=== PATIENT | female | born 1990 | race Caucasian/White ===

== ENCOUNTER 2018-05-15 17:33 | Inpatient (IN) | payer OTHER ==
[2018-05-15 18:32] LABS: PLATELET COUNT 183 10^3/uL (150-400)
--- NOTE | 2018-05-15 20:12 | GHP ---
DATE OF ADMISSION: 05/15/2018 ADMITTING DIAGNOSIS: Intrauterine at 38-6/7 weeks gestation with elevated blood pressures, preeclampsia with mild features. HISTORY OF PRESENT ILLNESS: The patient is a 27-year-old, 1, para 0, with a last menstrual p eriod of 08/16/2017, and EDC of 05/23/2018, which was confirmed by a 10-week ultrasound. She present ed for her normal scheduled return OB visit today and was found to have elevated blood pressures of 1 50/100. She had mildly elevated blood pressures last week of 138/88. The patient denies headache, s cotomata, right upper quadrant pain, worsening edema, or any other symptoms. She presented to labor and delivery for evaluation and then was found to continue to have some elevated blood pressures in t he range of 131/83, 130/86, 144/88, 130/85, 136/94. The patient had labs drawn. Labs were significa nt for platelets of 183. AST 25, ALT 18, creatinine 0.8, uric acid 8.2, and protein to creatinine ra franchesca was 0.546. Because of documented elevated blood pressures of 150/100 and proteinuria, the patien t will be 39 weeks tomorrow, decision was made to proceed with induction of labor for preeclampsia wi th mild features. The patient's cervix was closed and soft in the office. I will place a Schaefr cath eter for cervical ripening and she will start Pitocin in the morning. PAST OBSTETRICAL HISTORY: The patient has no past obstetrical history. This is her 1st . PAST GYNECOLOGICAL HISTORY: She did have an abnormal Pap. History of HPV. Had colposcopy in 2014. Never been treated. Repeat Pap was negative. All her other Paps have been negative. She has no ot her significant gynecological problems. PAST MEDICAL HISTORY: She has left lower leg lymphedema from ankle fractures. She wears compression hose at work. PAST SURGICAL HISTORY: Only surgical history is dental implants and wisdom teeth. ALLERGIES: She has no known drug allergies. She is not on any current medications. SOCIAL HISTORY: She is . She lives with her . She is a nurse at [employer]. She denies tobacco, alcohol, and drug use. FAMILY HISTORY: Significant for maternal grandmother with heart disease. Maternal uncle with esopha geal cancer. Paternal grandfather with a stroke. Father with bipolar disorder. REVIEW OF SYSTEMS: Negative as per HPI as above. OBJECTIVE: The patient is afebrile. Blood pressures were as mentioned above. heart tones are 130s, reactive, moderate variability, category 1. She is ovidio irregularly. Cervix per exam early in the office was closed and soft. LABORATORIES: As above in HPI. ASSESSMENT/PLAN: A 27-year-old 1, para 0, at 38-6/7 weeks gestation, with preeclampsia with mild features by blood pressure and proteinuria criteria. The patient will have a Schafer catheter dian becky for cervical ripening and start Pitocin in the morning. /[id number]/MODL
[2018-05-15] MEDS ORDERED: LIDOCAINE 1% 300 MG/30 ML SDV ONE (20:13)
[2018-05-15] MEDS ORDERED: OLIVE OIL 118 ML BTL ONE (20:13)
[2018-05-15] MEDS ORDERED: AMMONIA AROMATIC 1 EACH AMP IH ONE (20:14)
[2018-05-15] MEDS ORDERED: MISOPROSTOL 200 MCG TAB ONE (20:14)
[2018-05-15] MEDS ORDERED: OXYTOCIN 10 UNIT/ML VIAL ONE (20:14)
[2018-05-15] MEDS ORDERED: LIDOCAINE 1% 300 MG/30 ML SDV SC PRN (20:39)
[2018-05-15] MEDS ORDERED: OXYTOCIN/RINGERS LACTATE 1,000 ML IV PRN (20:39)
[2018-05-15] MEDS ORDERED: TERBUTALINE SULFATE 1 MG/ML VIAL IV PRN (20:39)
[2018-05-15] MEDS ORDERED: EPSOM SALT 454 GM TP PRN (20:39)
[2018-05-15] MEDS ORDERED: MISOPROSTOL 200 MCG TAB PO PRN (20:39)
[2018-05-15] MEDS ORDERED: AMMONIA AROMATIC 1 EACH AMP IH PRN (20:39)
[2018-05-15] MEDS ORDERED: LR 1,000 ML IV PRN (20:39)
[2018-05-15] MEDS ORDERED: IBUPROFEN 600 MG TAB PO PRN (20:39)
[2018-05-15] MEDS ORDERED: OLIVE OIL 118 ML BTL MISC PRN (20:39)
[2018-05-15] MEDS ORDERED: ZOLPIDEM TARTRATE 5 MG TAB PO PRN (20:51)
[2018-05-15] MEDS ORDERED: LR 500 ML IV PRN (20:54)
[2018-05-15] MEDS ORDERED: OXYTOCIN/RINGERS LACTATE 500 ML IV SCH (21:00)
[2018-05-16 06:25] LABS: PLATELET COUNT 209 10^3/uL (150-400)
--- NOTE | 2018-05-16 08:28 | OBPROG ---
Labor Progress Note Assessment/Plan: Assessment: 27 G1 at 39w0d undergoing IOL for preeclampsia without severe features - by BPs and p/c = 0.546. Labs stable this morning, though appears to be hemoconcentrating. BPs stable this morning. Cephalic presentation confirmed by Dr. Coyle this morning. Alcazar bulb still in place. GBS neg. EFW 8lb Plan: Pitocin has been started. Continue close observation, will start monitoring I/O too. Aleyda Alvarez MD, [facility] 05/16/18 08:22 Subjective/Intrapartum Course: 05/16/18 08:33 Pt comfortable. Feeling a little cramping since pitocin started this morning by Dr. Coyle. No LOF, some bloody dc. Alcazar bulb still in place. No RIZZO, no vis changes, no RUQ or epigastric pain. Objective: 05/16/18 06:10 05/16/18 06:10 Patient ABO/Rh O POSITIVE 05/16/18 06:10 Uric Acid 8.1 mg/dL (2.5-6.8) H 05/16/18 06:10 Total Bilirubin 0.5 mg/dL (0.1-1.4) 05/15/18 18:10 Conjugated Bilirubin 0.2 mg/dL (0.0-0.5) 05/15/18 18:10 Unconjugated Bilirubin 0.3 mg/dL (0.0-1.1) 05/15/18 18:10 AST 35 IU/L (14-46) 05/16/18 06:10 ALT 19 IU/L (9-52) 05/16/18 06:10 Lactate Dehydrogenase 550 IU/L (313-618) 05/16/18 06:10 gen - pleasant, NAD CV - RRR chest - CTAB abd - gravid, soft, NT ext - LLE with compression sock and chronic edema = 1+ now, RLE with trace pitting edema. 2+ DTRs on BLE, no clonus, Gricelda's neg End of Alcazar catheter removed from vagina and gentle tension placed, with no release of alcazar bulb. - Contraction Pattern Assessment Current Contraction Pattern: Regular - FHR Assessment Jansen FHR (bpm): 125 FHR Pattern Variability: Moderate FHR Category: 1 - AP Antepartum Course: Office visit on 05/15/18 - elevated BPs. To L&D for induction. Asymptomatic, but p/c = 0.546 and BPs 150/100 initially. 05/16/18 08:38 Oxytocin Orders Assessment - Pre-Induction/Augmentation Assessment Indication: preeclampsia without severe features, 39w0d Presentation: Vertex Gestational Age: 38 week(s) and 6 day(s) Gestational Age Determined By: Ultrasound, Last Menstral Period Estimated Weight: 3456-3920 Membrane Status: Intact Current Contraction Pattern: Regular - Heart Rate Pattern Jansen FHR Category: 1 FHR Pattern Variability: Moderate FHR Accelerations: Present - Tirado's Score Dilation: 1-2cm Effacement: 0-30 Station: -3 Cervix: Firm Cervix Position: Posterior Tirado Score Total: 1 - Induction/Augmentation Consent Risks/Benefits of Procedure Reviewed/Pt Agrees to Proceed: Yes ICD10 Worksheet Patient Problems: Problems Problem Status Onset Pre-eclampsia during in third trimester, antepartum Acute - ICD10 Problem Qualifiers (1) Pre-eclampsia during in third trimester, antepartum
--- NOTE | 2018-05-16 11:47 | OBPROG ---
Labor Progress Note Assessment/Plan: Assessment: 27 G1 at 39w0d undergoing IOL for preeclampsia without severe features - by BPs and p/c = 0.546. Labs stable this morning, though appears to be hemoconcentrating. BPs stable this morning. Cephalic presentation confirmed by Dr. Coyle this morning. Alcazar bulb still in place. GBS neg. EFW 8lb Plan: Pitocin has been started. Continue close observation, will start monitoring I/O too. Aelyda Alvarez MD, [facility] 05/16/18 08:22 A/p: 27 G1 at 39wk - IOL for preeclampsia without severe features, not in active labor yet. Will continue pitocin. Aleyda Alvarez MD 05/16/18 11:45 Subjective/Intrapartum Course: 05/16/18 08:33 Pt comfortable. Feeling a little cramping since pitocin started this morning by Dr. Coyle. No LOF, some bloody dc. Alcazar bulb still in place. No RIZZO, no vis changes, no RUQ or epigastric pain. 05/16/18 11:46 Per RN - pt doing well, not uncomfortable, has been tugging alcazar with no removal. Objective: 05/16/18 06:10 05/16/18 06:10 Patient ABO/Rh O POSITIVE 05/16/18 06:10 Uric Acid 8.1 mg/dL (2.5-6.8) H 05/16/18 06:10 Total Bilirubin 0.5 mg/dL (0.1-1.4) 05/15/18 18:10 Conjugated Bilirubin 0.2 mg/dL (0.0-0.5) 05/15/18 18:10 Unconjugated Bilirubin 0.3 mg/dL (0.0-1.1) 05/15/18 18:10 AST 35 IU/L (14-46) 05/16/18 06:10 ALT 19 IU/L (9-52) 05/16/18 06:10 Lactate Dehydrogenase 550 IU/L (313-618) 05/16/18 06:10 - Contraction Pattern Assessment Current Contraction Pattern: Regular - FHR Assessment Jansen FHR (bpm): 120 FHR Pattern Variability: Moderate FHR Category: 1 - AP Antepartum Course: Office visit on 05/15/18 - elevated BPs. To L&D for induction. Asymptomatic, but p/c = 0.546 and BPs 150/100 initially. 05/16/18 08:38 - Physical Exam Estimated Weight: 2328-4360 Oxytocin Orders Assessment - Pre-Induction/Augmentation Assessment Presentation: Vertex Gestational Age: 38 week(s) and 6 day(s) Estimated Weight: 7542-2947 ICD10 Worksheet Patient Problems: Problems Problem Status Onset Pre-eclampsia during in third trimester, antepartum Acute - ICD10 Problem Qualifiers (1) Pre-eclampsia during in third trimester, antepartum
--- NOTE | 2018-05-16 14:49 | OBPROG ---
Labor Progress Note Assessment/Plan: Assessment: 27 G1 at 39w0d undergoing IOL for preeclampsia without severe features - by BPs and p/c = 0.546. Labs stable this morning, though appears to be hemoconcentrating. BPs stable this morning. Cephalic presentation confirmed by Dr. Coyle this morning. Alcazar bulb still in place. GBS neg. EFW 8lb Plan: Pitocin has been started. Continue close observation, will start monitoring I/O too. Aleyda Alvarez MD, [facility] 05/16/18 08:22 A/p: 27 G1 at 39wk - IOL for preeclampsia without severe features, not in active labor yet. Will continue pitocin. Aleyda Alvarez MD 05/16/18 11:45 A/P: 27 G1 at 39wk - IOL for preeclampsia without severe features, not in active labor yet, though Alcazar bulb just came out. Aleyda Alvarez MD 05/16/18 14:46 Subjective/Intrapartum Course: 05/16/18 08:33 Pt comfortable. Feeling a little cramping since pitocin started this morning by Dr. Coyle. No LOF, some bloody dc. Alcazar bulb still in place. No RIZZO, no vis changes, no RUQ or epigastric pain. 05/16/18 11:46 Per RN - pt doing well, not uncomfortable, has been tugging alcazar with no removal. 05/16/18 14:49 Doing well, minimal cramping, but Alcazar bulb just out. Objective: 05/16/18 06:10 05/16/18 06:10 Patient ABO/Rh O POSITIVE 05/16/18 06:10 Uric Acid 8.1 mg/dL (2.5-6.8) H 05/16/18 06:10 Total Bilirubin 0.5 mg/dL (0.1-1.4) 05/15/18 18:10 Conjugated Bilirubin 0.2 mg/dL (0.0-0.5) 05/15/18 18:10 Unconjugated Bilirubin 0.3 mg/dL (0.0-1.1) 05/15/18 18:10 AST 35 IU/L (14-46) 05/16/18 06:10 ALT 19 IU/L (9-52) 05/16/18 06:10 Lactate Dehydrogenase 550 IU/L (313-618) 05/16/18 06:10 - Contraction Pattern Assessment Current Contraction Pattern: Regular - FHR Assessment Jansen FHR (bpm): 125 FHR Pattern Variability: Moderate FHR Category: 1 - AP Antepartum Course: Office visit on 05/15/18 - elevated BPs. To L&D for induction. Asymptomatic, but p/c = 0.546 and BPs 150/100 initially. 05/16/18 08:38 - Physical Exam Estimated Weight: 0670-5495 Oxytocin Orders Assessment - Pre-Induction/Augmentation Assessment Presentation: Vertex Gestational Age: 38 week(s) and 6 day(s) Estimated Weight: 3641-4510 ICD10 Worksheet Patient Problems: Problems Problem Status Onset Pre-eclampsia during in third trimester, antepartum Acute - ICD10 Problem Qualifiers (1) Pre-eclampsia during in third trimester, antepartum
--- NOTE | 2018-05-16 16:27 | OBPROG ---
Labor Progress Note Assessment/Plan: Assessment: 27 G1 at 39w0d undergoing IOL for preeclampsia without severe features - by BPs and p/c = 0.546. Labs stable this morning, though appears to be hemoconcentrating. BPs stable this morning. Cephalic presentation confirmed by Dr. Coyle this morning. Alcazar bulb still in place. GBS neg. EFW 8lb Plan: Pitocin has been started. Continue close observation, will start monitoring I/O too. Aleyda Alvarez MD, [facility] 05/16/18 08:22 A/p: 27 G1 at 39wk - IOL for preeclampsia without severe features, not in active labor yet. Will continue pitocin. Aleyda Alvarez MD 05/16/18 11:45 A/P: 27 G1 at 39wk - IOL for preeclampsia without severe features, not in active labor yet, though Alcazar bulb just came out. Aleyda Alvarez MD 05/16/18 14:46 05/16/18 16:23 A/P: 27 G1 t 39 wk - IOL for preeclampsia, s/p SROM - clear, appears to be starting active labor. BPs stable. Will continue with pitocin. Aleyda Alvarez MD Subjective/Intrapartum Course: 05/16/18 08:33 Pt comfortable. Feeling a little cramping since pitocin started this morning by Dr. Coyle. No LOF, some bloody dc. Alcazar bulb still in place. No RIZZO, no vis changes, no RUQ or epigastric pain. 05/16/18 11:46 Per RN - pt doing well, not uncomfortable, has been tugging alcazar with no removal. 05/16/18 14:49 Doing well, minimal cramping, but Alcazar bulb just out. 05/16/18 16:27 Pt doing well. Just had gush of fluid. Becoming more uncomfortable with contractions. Objective: 05/16/18 06:10 05/16/18 06:10 Patient ABO/Rh O POSITIVE 05/16/18 06:10 Uric Acid 8.1 mg/dL (2.5-6.8) H 05/16/18 06:10 Total Bilirubin 0.5 mg/dL (0.1-1.4) 05/15/18 18:10 Conjugated Bilirubin 0.2 mg/dL (0.0-0.5) 05/15/18 18:10 Unconjugated Bilirubin 0.3 mg/dL (0.0-1.1) 05/15/18 18:10 AST 35 IU/L (14-46) 05/16/18 06:10 ALT 19 IU/L (9-52) 05/16/18 06:10 Lactate Dehydrogenase 550 IU/L (313-618) 05/16/18 06:10 132/84 82 afeb gen - pleasant, NAD SVE /-3, clear fluid with some dark clots I suspect are related to the Alcazar bulb placement and removal. - SVE Dilation (cm): 4 Effacement (%): 75 Station: -3 Membranes: SROM Amniotic Fluid Color: Clear - Contraction Pattern Assessment Current Contraction Pattern: Regular - AP Antepartum Course: Office visit on 05/15/18 - elevated BPs. To L&D for induction. Asymptomatic, but p/c = 0.546 and BPs 150/100 initially. 05/16/18 08:38 - Physical Exam Estimated Weight: 6678-5410 Oxytocin Orders Assessment - Pre-Induction/Augmentation Assessment Presentation: Vertex Gestational Age: 38 week(s) and 6 day(s) Estimated Weight: 9560-3959 ICD10 Worksheet Patient Problems: Problems Problem Status Onset Pre-eclampsia during in third trimester, antepartum Acute - ICD10 Problem Qualifiers (1) Pre-eclampsia during in third trimester, antepartum
[2018-05-16] MEDS ORDERED: BUPIVACAINE 0.25% 30 ML SDV ONE (17:27)
[2018-05-16] MEDS ORDERED: fentaNYL 2MCG/ML/BUP 0.1% RTU 100 ML BAG EP ONE (17:27)
[2018-05-16] MEDS ORDERED: PHENYLEPHRINE HCL 100 MCG/ML SYR ONE (17:27)
[2018-05-16] MEDS ORDERED: fentaNYL 100 MCG/2 ML INJ ONE (17:28)
[2018-05-16] MEDS ORDERED: PHENYLEPHRINE HCL 100 MCG/ML SYR IVP PRN (19:27)
--- NOTE | 2018-05-16 19:29 | POSTANESTH ---
Post Anesthetic Evaluation Cardiovascular Status: Normal, Stable, Similar to Pre-Op Cond Respiratory Status: Normal, Stable, Similar to Pre-op Cond. Level of Consciousness/Mental Status: Can Participate in Eval, Alert and Oriented Pain Control: Adequate, Prn Tx Ordered Nausea/Vomiting Control: Adequate, Prn Tx Ordered Complications Possibly Related to Anesthesia: None Noted
[2018-05-16] MEDS ORDERED: LR 500 ML IV SCH (19:30)
[2018-05-16] MEDS ORDERED: fentaNYL 2MCG/ML/BUP 0.1% RTU 100 ML EP SCH (19:30)
--- NOTE | 2018-05-16 19:32 | PREANESOB ---
Obstetric Pre-Anesthesia Info - General Info Proposed Procedure: Labor and delivery with pitocin. : 1 Para: 0 JENN: 05/23/18 Gestational Age: 38 week(s) and 6 day(s) - Info Status: Full Term Monitors: External FHR Baseline (bpm): 125 FHR Pattern: Reassuring - Labor Status Cervical Dilation per last OB SVE: 4 Station per last OB SVE: -3 Amniotic Fluid Color: Clear Pitocin: In Use PIH: Mild Indications for Labor Analgesia: Induction of Labor, Pain Control Labor Epidural: Proposed Anesthesia ROS: Dental implants. 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 Allergies/Adverse Reactions: Allergy/AdvReac Type Severity Reaction Status Date / Time No Known Allergies Allergy Unverified 07/12/16 17:13 Home Medications: Medication Instructions Recorded Vit27&Calcium/Iron/FA 1 tab PO DAILY 05/16/18 [] Visit Medications: Generic Name Dose Route Start Last Admin Trade Name Freq PRN Reason Stop Dose Admin Acetaminophen 1,000 mg 05/15/18 20:53 Tylenol PO 11/11/18 20:52 Q6HRS PRN Pain, Mild/Fever, Can Take PO Ammonia (Aromatic Spirit) 1 each 05/15/18 20:39 Ammonia Aromatic IH 05/25/18 20:38 ONCE PRN Fainting Diphenhydramine HCl 25 - 50 mg 05/16/18 19:27 Benadryl Injection IVP 11/12/18 19:26 Q6HRS PRN Itching Lactated Ringer's 1,000 mls @ 0 mls/hr 05/15/18 20:39 05/16/18 06:26 Lr IV 05/16/18 20:38 1,000 mls PRN PRN Administration SEE PROTOCOL CONDITIONS Protocol Per Protocol Oxytocin/Lactated Ringer's 1,000 mls @ 0 mls/hr 05/15/18 20:39 Pitocin 20 Units/Lr (Premix) IV PRN PRN Post bleeding As Directed Lactated Ringer's 500 mls @ 500 mls/hr 05/15/18 20:54 Lr IV 05/16/18 20:54 PRN PRN Maternal Hypotension Oxytocin/Lactated Ringer's 500 mls @ 0 mls/hr 05/15/18 21:00 Pitocin 30 Units/Lr (Premix) IV 11/11/18 20:59 CONT [facility] Protocol Per Protocol Fentanyl/Bupivacaine HCl 100 mls @ 0 mls/hr 05/16/18 19:30 Fentanyl/Bupivacaine/Ns 2 Mcg/Ml 0.1% (Premix EP 05/26/18 19:29 CONT [facility] Protocol As Directed Lactated Ringer's 500 mls @ 0 mls/hr 05/16/18 19:30 Lr IV 11/12/18 19:29 CONT [facility] As Directed Ibuprofen 600 mg 05/15/18 20:39 Motrin PO ONCE PRN post , pain Lidocaine HCl 300 mg 05/15/18 20:39 Lidocaine Hcl 1% SC 11/11/18 20:38 ONCE PRN episiotomy Magnesium Sulfate 454 gm 05/15/18 20:39 Epsom Salt TP 11/11/18 20:38 Q1H PRN perineal discomfort Misoprostol 800 - 1,000 mcg 05/15/18 20:39 Cytotec PO 11/11/18 20:38 ONCE PRN Vaginal Atony/Bleeding Parker Oil 118 ml 05/15/18 20:39 Sweet Oil MISC 11/11/18 20:38 ONCE PRN perineal massage Ondansetron HCl 4 mg 05/16/18 19:27 Zofran IVP 05/17/18 19:26 Q4HRS PRN Nausea/Vomiting, Can't Take PO Phenylephrine HCl 100 mcg 05/16/18 19:27 Neosynephrine IVP 11/12/18 19:26 .Q2M PRN Hypotension Terbutaline Sulfate 0.25 mg 05/15/18 20:39 Brethine IV 11/11/18 20:38 ONCE PRN Tachysystole Zolpidem Tartrate 5 mg 05/15/18 20:51 Ambien PO 11/11/18 20:50 HS PRN Sleep/Insomnia Discontinued Medications Generic Name Dose Route Start Last Admin Trade Name Freq PRN Reason Stop Dose Admin Ammonia (Aromatic Spirit) Confirm 05/15/18 20:14 Ammonia Aromatic Administered 05/15/18 20:15 Dose 1 each IH .STK-MED ONE Bupivacaine HCl Confirm 05/16/18 17:27 Sensorcaine 0.25% Sdv Administered 05/16/18 17:28 Dose 30 ml .ROUTE .STK-MED ONE Fentanyl Confirm 05/16/18 17:28 Sublimaze Administered 10/16/18 17:29 Dose 100 mcg .ROUTE .STK-MED ONE Fentanyl/Bupivacaine HCl Confirm 05/16/18 17:27 Fentanyl/Bupivacaine/Ns 2 Mcg/Ml 0.1% (Premix Administered 05/16/18 17:28 Dose 100 ml EP .STK-MED ONE Lidocaine HCl Confirm 05/15/18 20:13 Lidocaine Hcl 1% Administered 05/15/18 20:14 Dose 300 mg .ROUTE .STK-MED ONE Misoprostol Confirm 05/15/18 20:14 Cytotec Administered 05/15/18 20:15 Dose 1,000 mcg .ROUTE .STK-MED ONE Parker Oil Confirm 05/15/18 20:13 Sweet Oil Administered 05/15/18 20:14 Dose 118 ml .ROUTE .STK-MED ONE Oxytocin Confirm 05/15/18 20:14 Pitocin Administered 05/15/18 20:15 Dose 40 unit .ROUTE .STK-MED ONE Phenylephrine HCl Confirm 05/16/18 17:27 Neosynephrine Administered 05/16/18 17:28 Dose 1,000 mcg .ROUTE .STK-MED ONE - Anesthesia History Response to Local Anesthetics: Normal Anesthesia & Operative History: No Prior Problems Family Anesthesia History: Negative - Social History Substance Use/Abuse: Denies - Vital Signs Blood Pressure: 141/81 Heart Rate: 88 Respiratory Rate: 16 Height/Weight (Nursing): Height 170.18 cm Weight 93.44 kg - Focused Exam Neck exam: FROM Mallampati Score: Class 1 Mouth exam: normal dental/mouth exam (Dental implants.) Pulmonary: no respiratory distress Cardiovascular: regular rate and rhythym Labs: 05/16/18 06:10 05/16/18 06:10 Patient ABO/Rh O POSITIVE 05/16/18 06:10 Uric Acid 8.1 mg/dL (2.5-6.8) H 05/16/18 06:10 Total Bilirubin 0.5 mg/dL (0.1-1.4) 05/15/18 18:10 Conjugated Bilirubin 0.2 mg/dL (0.0-0.5) 05/15/18 18:10 Unconjugated Bilirubin 0.3 mg/dL (0.0-1.1) 05/15/18 18:10 AST 35 IU/L (14-46) 05/16/18 06:10 ALT 19 IU/L (9-52) 05/16/18 06:10 Lactate Dehydrogenase 550 IU/L (313-618) 05/16/18 06:10 - Plan Anesthetic Plan: CSE Consent Signed and on Chart: Yes Patient/Guardian Understands and Agrees to Plan: Yes Urgent/Emergent Case: Anes eval completed preop but documented later for safe timely pt care
--- NOTE | 2018-05-16 21:35 | OBPROG ---
Labor Progress Note Assessment/Plan: Assessment: 27 G1 at 39w0d undergoing IOL for preeclampsia without severe features - by BPs and p/c = 0.546. Labs stable this morning, though appears to be hemoconcentrating. BPs stable this morning. Cephalic presentation confirmed by Dr. Coyle this morning. Alcazar bulb still in place. GBS neg. EFW 8lb Plan: Pitocin has been started. Continue close observation, will start monitoring I/O too. Aleyda Alvarez MD, [facility] 05/16/18 08:22 A/p: 27 G1 at 39wk - IOL for preeclampsia without severe features, not in active labor yet. Will continue pitocin. Aleyda Alvarez MD 05/16/18 11:45 A/P: 27 G1 at 39wk - IOL for preeclampsia without severe features, not in active labor yet, though Alcazar bulb just came out. Aleyda Alvarez MD 05/16/18 14:46 05/16/18 16:23 A/P: 27 G1 t 39 wk - IOL for preeclampsia, s/p SROM - clear, appears to be starting active labor. BPs stable. Will continue with pitocin. Aleyda Alvarez MD 05/16/18 21:31 A/P: 27 G1 at 39wk, IOL for preeclampsia, no s/p SROM 5 hours ago, epidural placement, and minimal progress since. IUPC placed. Will cut pitocin in half and then restart and titrate in response to IUPC. Aleyda Alvarez MD Subjective/Intrapartum Course: 05/16/18 08:33 Pt comfortable. Feeling a little cramping since pitocin started this morning by Dr. Coyle. No LOF, some bloody dc. Alcazar bulb still in place. No RIZZO, no vis changes, no RUQ or epigastric pain. 05/16/18 11:46 Per RN - pt doing well, not uncomfortable, has been tugging alcazar with no removal. 05/16/18 14:49 Doing well, minimal cramping, but Alcazar bulb just out. 05/16/18 16:27 Pt doing well. Just had gush of fluid. Becoming more uncomfortable with contractions. 05/16/18 21:33 Pt comfortable after epidural, but thought maybe she was feeling some more pressure. Objective: 05/16/18 06:10 10/16/18 06:10 Patient ABO/Rh O POSITIVE 05/16/18 06:10 Uric Acid 8.1 mg/dL (2.5-6.8) H 05/16/18 06:10 Total Bilirubin 0.5 mg/dL (0.1-1.4) 05/15/18 18:10 Conjugated Bilirubin 0.2 mg/dL (0.0-0.5) 05/15/18 18:10 Unconjugated Bilirubin 0.3 mg/dL (0.0-1.1) 05/15/18 18:10 AST 35 IU/L (14-46) 05/16/18 06:10 ALT 19 IU/L (9-52) 05/16/18 06:10 Lactate Dehydrogenase 550 IU/L (313-618) 05/16/18 06:10 Temp Pulse Resp BP Pulse Ox 88 16 141/81 H 05/16/18 19:33 05/16/18 19:33 05/16/18 19:33 37.1 16 91 104/65, BPs today have ranged from 104-152 / 65-100 FHR 120 reactive toco - q 2-4 gen - pleasant, NAD SVE - 5 / 80 / -2 clear fluid - SVE Dilation (cm): 5 Effacement (%): 80 Station: -2 Membranes: SROM Amniotic Fluid Color: Clear - Contraction Pattern Assessment Current Contraction Pattern: Regular - FHR Assessment Jansen FHR (bpm): 125 FHR Pattern Variability: Moderate FHR Category: 1 - Procedures Non-surgical Procedures: IUPC - AP Antepartum Course: Office visit on 05/15/18 - elevated BPs. To L&D for induction. Asymptomatic, but p/c = 0.546 and BPs 150/100 initially. 05/16/18 08:38 - Physical Exam Estimated Weight: 1408-9286 Oxytocin Orders Assessment - Pre-Induction/Augmentation Assessment Presentation: Vertex Gestational Age: 38 week(s) and 6 day(s) Estimated Weight: 3505-2408 ICD10 Worksheet Patient Problems: Problems Problem Status Onset Arrested active phase of labor Acute Pre-eclampsia during in third trimester, antepartum Acute - ICD10 Problem Qualifiers (1) Pre-eclampsia during in third trimester, antepartum (2) Arrested active phase of labor
[2018-05-17] MEDS: ONDANSETRON 4 MG/2 ML VIAL IVP PRN ×2 (00:43→07:04)
--- NOTE | 2018-05-17 01:13 | OBPROG ---
Labor Progress Note Assessment/Plan: Assessment: 28 G1 at 39w0d undergoing IOL for preeclampsia without severe features - by BPs and p/c = 0.546. Labs stable this morning, though appears to be hemoconcentrating. BPs stable this morning. Cephalic presentation confirmed by Dr. Coyle this morning. Alcazar bulb still in place. GBS neg. EFW 8lb Plan: Pitocin has been started. Continue close observation, will start monitoring I/O too. Aleyda Alvarez MD, [facility] 05/16/18 08:22 A/p: 28 G1 at 39wk - IOL for preeclampsia without severe features, not in active labor yet. Will continue pitocin. Aleyda Alvarez MD 05/16/18 11:45 A/P: 28 G1 at 39wk - IOL for preeclampsia without severe features, not in active labor yet, though Alcazar bulb just came out. Aleyda Alvarez MD 05/16/18 14:46 05/16/18 16:23 A/P: 28 G1 t 39 wk - IOL for preeclampsia, s/p SROM - clear, appears to be starting active labor. BPs stable. Will continue with pitocin. Aleyda Alvarez MD 05/16/18 21:31 A/P: 28 G1 at 39wk, IOL for preeclampsia, now s/p SROM 5 hours ago, epidural placement, and minimal progress since. IUPC placed. Will cut pitocin in half and then restart and titrate in response to IUPC. Aleyda Alvarez MD 05/17/18 01:10 A/P: 28 G1 at 39w1d, IOL for preeclampsia, now s/p SROM x 9 hours, epidural effective. Unable to get contraction pattern adequate. IUPC replaced. Will stop pitocin and restart again. Continue with position changes, and peanut ball. Aleyda Alvarez MD Subjective/Intrapartum Course: 05/16/18 08:33 Pt comfortable. Feeling a little cramping since pitocin started this morning by Dr. Coyle. No LOF, some bloody dc. Alcazar bulb still in place. No RIZZO, no vis changes, no RUQ or epigastric pain. 05/16/18 11:46 Per RN - pt doing well, not uncomfortable, has been tugging alcazar with no removal. 05/16/18 14:49 Doing well, minimal cramping, but Alcazar bulb just out. 05/16/18 16:27 Pt doing well. Just had gush of fluid. Becoming more uncomfortable with contractions. 05/16/18 21:33 Pt comfortable after epidural, but thought maybe she was feeling some more pressure. 05/17/18 01:12 Pt still comfortable. Can occasionally feel a contraction. No RIZZO, no vis changes. Just had some N/V which was new. Frustrated with slow progress. Objective: 05/16/18 06:10 05/16/18 06:10 Patient ABO/Rh O POSITIVE 05/16/18 06:10 Uric Acid 8.1 mg/dL (2.5-6.8) H 05/16/18 06:10 Total Bilirubin 0.5 mg/dL (0.1-1.4) 05/15/18 18:10 Conjugated Bilirubin 0.2 mg/dL (0.0-0.5) 05/15/18 18:10 Unconjugated Bilirubin 0.3 mg/dL (0.0-1.1) 05/15/18 18:10 AST 35 IU/L (14-46) 05/16/18 06:10 ALT 19 IU/L (9-52) 05/16/18 06:10 Lactate Dehydrogenase 550 IU/L (313-618) 05/16/18 06:10 Temp Pulse Resp BP Pulse Ox 88 16 141/81 H 05/16/18 19:33 05/16/18 19:33 05/16/18 19:33 37.3 91% 84 136/94 currently, as low as 120/75 in past few hours. SVE 5/80/-2 clear fluid, mildly blood tinged. IUPC replaced. - SVE Dilation (cm): 5 Effacement (%): 80 Membranes: SROM Amniotic Fluid Color: Clear, Bloody (mildly blood tinged) - Contraction Pattern Assessment Current Contraction Pattern: Regular (MVU inadequate - vary from 13-130 / 10 min ) - FHR Assessment Jansen FHR (bpm): 135 FHR Pattern Variability: Moderate FHR Category: 1 - Procedures Non-surgical Procedures: IUPC (replaced) - AP Antepartum Course: Office visit on 05/15/18 - elevated BPs. To L&D for induction. Asymptomatic, but p/c = 0.546 and BPs 150/100 initially. 05/16/18 08:38 - Physical Exam Estimated Weight: [id number] Oxytocin Orders Assessment - Pre-Induction/Augmentation Assessment Presentation: Vertex Gestational Age: 38 week(s) and 6 day(s) Estimated Weight: 7643-6793 ICD10 Worksheet Patient Problems: Problems Problem Status Onset Arrested active phase of labor Acute Pre-eclampsia during in third trimester, antepartum Acute - ICD10 Problem Qualifiers (1) Pre-eclampsia during in third trimester, antepartum (2) Arrested active phase of labor
[2018-05-17] MEDS ORDERED: CITRIC ACID/SODIUM CITRATE 30 ML UDCUP ONE (03:54)
[2018-05-17] MEDS ORDERED: ceFAZolin 2 GM/DEXTROSE 100 ML IV ONE (03:57)
[2018-05-17] MEDS ORDERED: LR 500 ML IV ONE (03:57)
[2018-05-17] MEDS ORDERED: LR 1,000 ML IV SCH (04:00)
[2018-05-17] MEDS ORDERED: OXYTOCIN 100 UNITS/10 ML VIAL ONE (04:03)
[2018-05-17] MEDS ORDERED: CHLOROPROCAINE HCL 2% 400 MG/20 ML VIAL ONE (04:03)
[2018-05-17] MEDS ORDERED: morphINE PF 5 MG/10 ML INJ ONE (04:03)
[2018-05-17] MEDS ORDERED: fentaNYL 100 MCG/2 ML INJ ONE ×2 (04:03→06:02)
[2018-05-17] MEDS ORDERED: LABETALOL HCL 5 MG/ML 20 ML MDV IVP PRN (04:09)
[2018-05-17] MEDS ORDERED: NALOXONE HCL 0.4 MG/ML INJ IVP PRN (04:09)
[2018-05-17] MEDS ORDERED: PHENYLEPHRINE HCL 100 MCG/ML SYR IVP PRN (04:09)
[2018-05-17] MEDS ORDERED: ONDANSETRON 4 MG/2 ML VIAL IVP PRN ×2 (04:09)
[2018-05-17] MEDS ORDERED: fentaNYL 100 MCG/2 ML INJ IVP PRN (04:09)
--- NOTE | 2018-05-17 04:09 | PREANESOB ---
Obstetric Pre-Anesthesia Info - General Info Proposed Procedure: C/S : 1 Para: 0 JENN: 05/23/18 Gestational Age: 38 week(s) and 6 day(s) - Info Status: Full Term FHR Baseline (bpm): 125 FHR Pattern: Reassuring - Labor Status Cervical Dilation per last OB SVE: 5 Station per last OB SVE: -2 Amniotic Fluid Color: Clear, Bloody (mildly blood tinged) Pitocin: In Use PIH: Mild Magnesium Sulfate in Use: No Section History: Primary Indications for Current Section: Arrest of Descent Labor Epidural: Yes Anesthesia Allergies/Adverse Reactions: Allergy/AdvReac Type Severity Reaction Status Date / Time No Known Allergies Allergy Unverified 07/12/16 17:13 Home Medications: Medication Instructions Recorded Vit27&Calcium/Iron/FA 1 tab PO DAILY 05/16/18 [] Visit Medications: Generic Name Dose Route Start Last Admin Trade Name Freq PRN Reason Stop Dose Admin Acetaminophen 1,000 mg 05/15/18 20:53 Tylenol PO 11/11/18 20:52 Q6HRS PRN Pain, Mild/Fever, Can Take PO Ammonia (Aromatic Spirit) 1 each 05/15/18 20:39 Ammonia Aromatic IH 05/25/18 20:38 ONCE PRN Fainting Diphenhydramine HCl 25 - 50 mg 05/16/18 19:27 Benadryl Injection IVP 11/12/18 19:26 Q6HRS PRN Itching Oxytocin/Lactated Ringer's 1,000 mls @ 0 mls/hr 05/15/18 20:39 Pitocin 20 Units/Lr (Premix) IV PRN PRN Post bleeding As Directed Oxytocin/Lactated Ringer's 500 mls @ 0 mls/hr 05/15/18 21:00 05/16/18 21:38 Pitocin 30 Units/Lr (Premix) IV 11/11/18 20:59 500 mls CONT RAMYA Administration Protocol Per Protocol Fentanyl/Bupivacaine HCl 100 mls @ 0 mls/hr 05/16/18 19:30 05/16/18 23:59 Fentanyl/Bupivacaine/Ns 2 Mcg/Ml 0.1% (Premix EP 05/26/18 19:29 100 mls CONT RAMYA Administration Protocol As Directed Lactated Ringer's 500 mls @ 0 mls/hr 05/16/18 19:30 05/17/18 00:41 Lr IV 11/12/18 19:29 500 mls CONT RAMYA Administration As Directed Ibuprofen 600 mg 05/15/18 20:39 Motrin PO ONCE PRN post , pain Lidocaine HCl 300 mg 05/15/18 20:39 Lidocaine Hcl 1% SC 11/11/18 20:38 ONCE PRN episiotomy Magnesium Sulfate 454 gm 05/15/18 20:39 Epsom Salt TP 11/11/18 20:38 Q1H PRN perineal discomfort Misoprostol 800 - 1,000 mcg 05/15/18 20:39 Cytotec PO 11/11/18 20:38 ONCE PRN Vaginal Atony/Bleeding [place] Oil 118 ml 05/15/18 20:39 Sweet Oil MISC 11/11/18 20:38 ONCE PRN perineal massage Ondansetron HCl 4 mg 05/16/18 19:27 05/17/18 00:43 Zofran IVP 05/17/18 19:26 4 mg Q4HRS PRN Administration Nausea/Vomiting, Can't Take PO Phenylephrine HCl 100 mcg 05/16/18 19:27 Neosynephrine IVP 11/12/18 19:26 .Q2M PRN Hypotension Terbutaline Sulfate 0.25 mg 05/15/18 20:39 Brethine IV 11/11/18 20:38 ONCE PRN Tachysystole Zolpidem Tartrate 5 mg 05/15/18 20:51 Ambien PO 11/11/18 20:50 HS PRN Sleep/Insomnia Discontinued Medications Generic Name Dose Route Start Last Admin Trade Name Adeelq PRN Reason Stop Dose Admin Ammonia (Aromatic Spirit) Confirm 05/15/18 20:14 Ammonia Aromatic Administered 05/15/18 20:15 Dose 1 each IH .STK-MED ONE Bupivacaine HCl Confirm 05/16/18 17:27 Sensorcaine 0.25% Sdv Administered 05/16/18 17:28 Dose 30 ml .ROUTE .STK-MED ONE Fentanyl Confirm 05/16/18 17:28 Sublimaze Administered 05/16/18 17:29 Dose 100 mcg .ROUTE .STK-MED ONE Fentanyl/Bupivacaine HCl Confirm 05/16/18 17:27 Fentanyl/Bupivacaine/Ns 2 Mcg/Ml 0.1% (Premix Administered 05/16/18 17:28 Dose 100 ml EP .STK-MED ONE Lactated Ringer's 1,000 mls @ 0 mls/hr 05/15/18 20:39 05/16/18 06:26 Lr IV 05/16/18 20:38 1,000 mls PRN PRN Administration SEE PROTOCOL CONDITIONS Protocol Per Protocol Lactated Ringer's 500 mls @ 500 mls/hr 05/15/18 20:54 Lr IV 05/16/18 20:54 PRN PRN Maternal Hypotension Lidocaine HCl Confirm 05/15/18 20:13 Lidocaine Hcl 1% Administered 05/15/18 20:14 Dose 300 mg .ROUTE .STK-MED ONE Misoprostol Confirm 05/15/18 20:14 Cytotec Administered 05/15/18 20:15 Dose 1,000 mcg .ROUTE .STK-MED ONE [place] Oil Confirm 05/15/18 20:13 Sweet Oil Administered 05/15/18 20:14 Dose 118 ml .ROUTE .STK-MED ONE Oxytocin Confirm 05/15/18 20:14 Pitocin Administered 05/15/18 20:15 Dose 40 unit .ROUTE .STK-MED ONE Phenylephrine HCl Confirm 05/16/18 17:27 Neosynephrine Administered 05/16/18 17:28 Dose 1,000 mcg .ROUTE .STK-MED ONE - Vital Signs Latest Vital Signs (Nursing): Temp Pulse Resp BP Pulse Ox 88 16 141/81 H 05/16/18 19:33 05/16/18 19:33 05/16/18 19:33 Height/Weight (Nursing): Height 170.18 cm Weight 93.44 kg - Focused Exam Neck exam: FROM Mallampati Score: Class 1 Pulmonary: no respiratory distress, no rales or rhonchi, clear to auscultation Cardiovascular: regular rate and rhythym, no murmur, rub, or gallop Labs: 05/16/18 06:10 05/16/18 06:10 Patient ABO/Rh O POSITIVE 05/16/18 06:10 Uric Acid 8.1 mg/dL (2.5-6.8) H 05/16/18 06:10 Total Bilirubin 0.5 mg/dL (0.1-1.4) 05/15/18 18:10 Conjugated Bilirubin 0.2 mg/dL (0.0-0.5) 05/15/18 18:10 Unconjugated Bilirubin 0.3 mg/dL (0.0-1.1) 05/15/18 18:10 AST 35 IU/L (14-46) 05/16/18 06:10 ALT 19 IU/L (9-52) 05/16/18 06:10 Lactate Dehydrogenase 550 IU/L (313-618) 05/16/18 06:10 - Plan Anesthetic Plan: Epidural in place, working well. Consent Signed and on Chart: Yes Patient/Guardian Understands and Agrees to Plan: Yes
--- NOTE | 2018-05-17 04:11 | OBPROG ---
Labor Progress Note Assessment/Plan: Assessment: 28 G1 at 39w0d undergoing IOL for preeclampsia without severe features - by BPs and p/c = 0.546. Labs stable this morning, though appears to be hemoconcentrating. BPs stable this morning. Cephalic presentation confirmed by Dr. Coyle this morning. Alcazar bulb still in place. GBS neg. EFW 8lb Plan: Pitocin has been started. Continue close observation, will start monitoring I/O too. Aleyda Alvarez MD, [facility] 05/16/18 08:22 A/p: 28 G1 at 39wk - IOL for preeclampsia without severe features, not in active labor yet. Will continue pitocin. Aleyda Alvarez MD 05/16/18 11:45 A/P: 28 G1 at 39wk - IOL for preeclampsia without severe features, not in active labor yet, though Alcazar bulb just came out. Aleyda Alvarez MD 05/16/18 14:46 05/16/18 16:23 A/P: 28 G1 t 39 wk - IOL for preeclampsia, s/p SROM - clear, appears to be starting active labor. BPs stable. Will continue with pitocin. Aleyda Alvarez MD 05/16/18 21:31 A/P: 28 G1 at 39wk, IOL for preeclampsia, now s/p SROM 5 hours ago, epidural placement, and minimal progress since. IUPC placed. Will cut pitocin in half and then restart and titrate in response to IUPC. Aleyda Alvarez MD 05/17/18 01:10 A/P: 28 G1 at 39w1d, IOL for preeclampsia, now s/p SROM x 9 hours, epidural effective. Unable to get contraction pattern adequate. IUPC replaced. Will stop pitocin and restart again. Continue with position changes, and peanut ball. Aleyda Alvarez MD 05/17/18 04:12 A/P: 28 G1 at 39w1d, with a failed IOL for preeclampsia. Unable to obtain an adequate contraction pattern. Has been arrested at 5 cm for almost 7 hours. Long discussion - recommended proceeding with a section, as unable to obtain an adequate contraction pattern, despite adjusting the pitocin, and position changes. B/R/A of proceeding with pitocin vs a section discussed. Agreed to proceed with a C/S. Written informed consent obtained. Aleyda Alvarez MD Subjective/Intrapartum Course: 05/16/18 08:33 Pt comfortable. Feeling a little cramping since pitocin started this morning by Dr. Coyle. No LOF, some bloody dc. Alcazar bulb still in place. No RIZZO, no vis changes, no RUQ or epigastric pain. 05/16/18 11:46 Per RN - pt doing well, not uncomfortable, has been tugging alcazar with no removal. 05/16/18 14:49 Doing well, minimal cramping, but Alcazar bulb just out. 05/16/18 16:27 Pt doing well. Just had gush of fluid. Becoming more uncomfortable with contractions. 05/16/18 21:33 Pt comfortable after epidural, but thought maybe she was feeling some more pressure. 05/17/18 01:12 Pt still comfortable. Can occasionally feel a contraction. No RIZZO, no vis changes. Just had some N/V which was new. Frustrated with slow progress. 05/17/18 04:15 Pt still comfortable, not feeling much different. NO RIZZO, no vis changes. No more nausea. Objective: 05/16/18 06:10 05/16/18 06:10 Patient ABO/Rh O POSITIVE 05/16/18 06:10 Uric Acid 8.1 mg/dL (2.5-6.8) H 05/16/18 06:10 Total Bilirubin 0.5 mg/dL (0.1-1.4) 05/15/18 18:10 Conjugated Bilirubin 0.2 mg/dL (0.0-0.5) 05/15/18 18:10 Unconjugated Bilirubin 0.3 mg/dL (0.0-1.1) 05/15/18 18:10 AST 35 IU/L (14-46) 05/16/18 06:10 ALT 19 IU/L (9-52) 05/16/18 06:10 Lactate Dehydrogenase 550 IU/L (313-618) 05/16/18 06:10 Temp Pulse Resp BP Pulse Ox 88 16 141/81 H 05/16/18 19:33 05/16/18 19:33 05/16/18 19:33 37.2 116 130/85 95% on RA SVE - unchanged, cervix more swollen, 5 / 80 / -2 FHR 130 reactive, Cat 1 toco - MVUs vary from 10-132 / 10 min over the past 3 hours. - SVE Dilation (cm): 5 Effacement (%): 80 Station: -2 (unchanged from last check, cervix more edematous) Membranes: SROM Amniotic Fluid Color: Clear, Bloody (mildly blood tinged) - Contraction Pattern Assessment Current Contraction Pattern: Regular (MVU inadequate - vary from 13-130 / 10 min ) - FHR Assessment Jansen FHR (bpm): 130 FHR Pattern Variability: Moderate FHR Category: 1 - Procedures Non-surgical Procedures: IUPC (replaced) - AP Antepartum Course: Office visit on 05/15/18 - elevated BPs. To L&D for induction. Asymptomatic, but p/c = 0.546 and BPs 150/100 initially. 05/16/18 08:38 - Physical Exam Estimated Weight: 2206-5899 Oxytocin Orders Assessment - Pre-Induction/Augmentation Assessment Presentation: Vertex Gestational Age: 38 week(s) and 6 day(s) Estimated Weight: 5811-6636 ICD10 Worksheet Patient Problems: Problems Problem Status Onset Arrested active phase of labor Acute Pre-eclampsia during in third trimester, antepartum Acute - ICD10 Problem Qualifiers (1) Pre-eclampsia during in third trimester, antepartum (2) Arrested active phase of labor
[2018-05-17] MEDS ORDERED: PHENYLEPHRINE HCL 100 MCG/ML SYR ONE (04:55)
[2018-05-17] MEDS ORDERED: ONDANSETRON 4 MG/2 ML VIAL ONE ×2 (04:57→07:03)
--- NOTE | 2018-05-17 05:53 | POSTOPPROG ---
Post Op Note Date of Operation: 05/17/18 Surgeon: Aleyda Alvarez Animal Skinner: Daniella Sarah Anesthesiologist: Bill Olguin Anesthesia: Epidural Pre-op Diagnosis: arrest of dilation, preeclampsia Post-op Diagnosis: same Indication: arrest of dilation at 5cm, induction in setting of preeclampsia Procedure: primary low transverse section Findings: KERRY vertex presentation, nl uterus, tubes & ovaries Inf/Abcess present in the surg proc area at time of surgery?: No EBL: Greater than 1000 (1500, uterine atony) Total fluids administered: 1100 Complications: Mild uterine atony - treated with IV pitocin and intrauterine 800mcg misoprostil
[2018-05-17] MEDS ORDERED: KETOROLAC 30 MG/1 ML SDV ONE (05:56)
--- NOTE | 2018-05-17 05:57 | OBDEL ---
Info Type: Primary Presentation at Delivery: Vertex L&D Analgesia/Anesthesia Type: Epidural GBS+: No Intrapartum Medications: Generic Name Dose Route Start Last Admin Trade Name Freq PRN Reason Stop Dose Admin Oxytocin/Lactated Ringer's 500 mls @ 0 mls/hr 05/15/18 21:00 05/16/18 21:38 Pitocin 30 Units/Lr (Premix) IV 11/11/18 20:59 500 mls CONT RAMYA Administration Protocol Per Protocol Fentanyl/Bupivacaine HCl 100 mls @ 0 mls/hr 05/16/18 19:30 05/16/18 23:59 Fentanyl/Bupivacaine/Ns 2 Mcg/Ml 0.1% (Premix EP 05/26/18 19:29 100 mls CONT RAMYA Administration Protocol As Directed Lactated Ringer's 500 mls @ 0 mls/hr 05/16/18 19:30 05/17/18 00:41 Lr IV 11/12/18 19:29 500 mls CONT RAMYA Administration As Directed Ondansetron HCl 4 mg 05/16/18 19:27 05/17/18 00:43 Zofran IVP 05/17/18 19:26 4 mg Q4HRS PRN Administration Nausea/Vomiting, Can't Take PO Discontinued Medications Generic Name Dose Route Start Last Admin Trade Name Freq PRN Reason Stop Dose Admin Lactated Ringer's 1,000 mls @ 0 mls/hr 05/15/18 20:39 05/16/18 06:26 Lr IV 05/16/18 20:38 1,000 mls PRN PRN Administration SEE PROTOCOL CONDITIONS Protocol Per Protocol - Care Provider Jitterbug Operator/JUNIOR LINUX ADMINISTRATOR: Sima Nagel - Hospital Course Intrapartum: 05/16/18 08:33 Pt comfortable. Feeling a little cramping since pitocin started this morning by Dr. Coyle. No LOF, some bloody dc. Alcazar bulb still in place. No RIZZO, no vis changes, no RUQ or epigastric pain. 05/16/18 11:46 Per RN - pt doing well, not uncomfortable, has been tugging alcazar with no removal. 05/16/18 14:49 Doing well, minimal cramping, but Alcazar bulb just out. 05/16/18 16:27 Pt doing well. Just had gush of fluid. Becoming more uncomfortable with contractions. 05/16/18 21:33 Pt comfortable after epidural, but thought maybe she was feeling some more pressure. 05/17/18 01:12 Pt still comfortable. Can occasionally feel a contraction. No RIZZO, no vis changes. Just had some N/V which was new. Frustrated with slow progress. 05/17/18 04:15 Pt still comfortable, not feeling much different. NO RIZZO, no vis changes. No more nausea. Indications for Delivery: Preeclampsia Mild Vaginal Delivery - Labor and Delivery Amniotic Fluid Color: Clear, Bloody (mildly blood tinged) Non-surgical Procedures: IUPC (replaced) Operative Report - Delivery Pre-op Diagnoses: Arrest of dilation, preeclampsia Post-op Diagnoses: same History of Prior Section: No Nulliparous Prior to Delivery: No Indications for Current Section: Arrest of Dilation (at 5cm, IOL for preeclampsia) Procedure: Unscheduled Surgeon: Aleyda Alvarez Librarian Assistant: Daniella Sarah Anesthesiologist: Bill Hines Complications: Other (Specify) (mild uterine atony) Findings: Normal appearing uterus, tubes, ovaries. Delivery of male infant from KERRY presentation, significant caput. IV Fluid (ml): 1,100 EBL: 1500 [place] Data JENN: 05/23/18 Gestational Age: 39 week(s) and 1 day(s) Jansen Sex of : Male (Gustavo) Score (1 Min): 8 Score (5 Min): 8 ICD10 Worksheet Patient Problems: Problems Problem Status Onset Arrested active phase of labor Acute delivery, delivered, current hospitalization Acute Pre-eclampsia during in third trimester, antepartum Acute - ICD10 Problem Qualifiers (1) Pre-eclampsia during in third trimester, antepartum (2) Arrested active phase of labor (3) delivery, delivered, current hospitalization
[2018-05-17] MEDS ORDERED: PROMETHAZINE HCL 25 MG/ML INJ IVP PRN (08:21)
[2018-05-17] MEDS ORDERED: oxyCODONE IR 5 MG TAB PO PRN (12:58)
[2018-05-17] MEDS: KETOROLAC 30 MG/1 ML SDV IVP PRN ×2 (15:42→21:30)
--- NOTE | 2018-05-17 15:45 | OBPP ---
Progress Note Assessment/Plan: Assessment: 1) s/p PCS secondary to arrest of dilation POD # 0.5 - pt is stable 2) IOL for preeclampsia - pt is asymptomatic and BPs stable Plan: Continue routine post-op care Encourage IS BPs stable 111-133/73-91, will cont to closely monitor Adequate uo Cont analgesics as ordered H/H in am 05/1805/17/18 15:49 Subjective/ Course: 05/17/18 15:49 Pt seen and examined. Just woke up and feels a little pain, states pain 3-4/10. N/V improved after Phenergan. Denies any HAs, visual changes or RUQ pain. Denies any f/c/CP or SOB. Minimal bleeding noted. Not OOB yet, chapo ice chips, alcazar in place and no flatus. Working on breast feeding. Objective: 05/16/18 06:10 05/16/18 06:10 Patient ABO/Rh O POSITIVE 05/16/18 06:10 Uric Acid 8.1 mg/dL (2.5-6.8) H 05/16/18 06:10 Total Bilirubin 0.5 mg/dL (0.1-1.4) 05/15/18 18:10 Conjugated Bilirubin 0.2 mg/dL (0.0-0.5) 05/15/18 18:10 Unconjugated Bilirubin 0.3 mg/dL (0.0-1.1) 05/15/18 18:10 AST 35 IU/L (14-46) 05/16/18 06:10 ALT 19 IU/L (9-52) 05/16/18 06:10 Lactate Dehydrogenase 550 IU/L (313-618) 05/16/18 06:10 Temp Pulse Resp BP Pulse Ox 36.9 C 97 16 111/73 96 05/17/18 12:50 05/17/18 12:50 05/17/18 12:50 05/17/18 12:50 05/17/18 12:50 Uterine Position/Fundal Height: Umbilicus -2 Uterine Tone: Firm Physical Exam - Physical Exam General Appearance: WD/WN, alert, no apparent distress Respiratory: lungs clear, normal breath sounds Cardiac/Chest: regular rate, rhythm Abdomen: normal bowel sounds, non-tender, soft, incision (C/D/I, dressing in place), dressing (C/D/I with no shadowing) Extremities: non-tender, normal inspection (with SCDs in place) Skin: normal color, warm/dry Neuro/Psych: alert, normal mood/affect, oriented x 3
[2018-05-17] MEDS: IBUPROFEN 600 MG TAB PO SCH ×2 (18:21→21:33)
[2018-05-17] MEDS: ACETAMINOPHEN 500 MG TAB PO PRN (21:30)
[2018-05-18] MEDS: IBUPROFEN 600 MG TAB PO SCH ×5 (00:34→22:22)
[2018-05-18] MEDS: KETOROLAC 30 MG/1 ML SDV IVP PRN (03:42)
[2018-05-18] MEDS: DOCUSATE SODIUM 100 MG CAP PO PRN ×2 (10:18→21:25)
[2018-05-18] MEDS ORDERED: IRON POLYSAC/IRON HEME 28 MG TAB PO SCH (10:45)
--- NOTE | 2018-05-18 12:48 | PDPAINCON ---
Pain Management Consultation Patient referred by : Kim - Subjective Pain at rest (/10): 2 Pain with activity (/10): 4 Pain is: low, well controlled Activity: able to ambulate - Objective Technique: spinal opioid Vital signs: stable - Assessment/Plan Assessment/Plan: pain well-controlled, continue current mgmt
--- NOTE | 2018-05-18 13:50 | OBPP ---
Progress Note Assessment/Plan: Assessment: POD 1 s/p primary c/s for arrest of dilation preeclampsia without severe features prompted induction - stable normal labs in labor - anemia today after bld loss with c/s Plan: routine care, iron BID 05/18/18 13:42 Subjective/ Course: 05/17/18 15:49 Pt seen and examined. Just woke up and feels a little pain, states pain 3-4/10. N/V improved after Phenergan. Denies any HAs, visual changes or RUQ pain. Denies any f/c/CP or SOB. Minimal bleeding noted. Not OOB yet, chapo ice chips, alcazar in place and no flatus. Working on breast feeding. 05/18/18 13:44 Pt doing fine. using ibu and tyl - declining oxy for now. urinating fine. bld is light. pain is manageable. tolerating reg diet. no headache/nausea/or visual change. leg swelling slightly increased in left leg - using compression device from home Objective: 05/18/18 05:55 05/16/18 06:10 Patient ABO/Rh O POSITIVE 05/16/18 06:10 Uric Acid 8.1 mg/dL (2.5-6.8) H 05/16/18 06:10 Total Bilirubin 0.5 mg/dL (0.1-1.4) 05/15/18 18:10 Conjugated Bilirubin 0.2 mg/dL (0.0-0.5) 05/15/18 18:10 Unconjugated Bilirubin 0.3 mg/dL (0.0-1.1) 05/15/18 18:10 AST 35 IU/L (14-46) 05/16/18 06:10 ALT 19 IU/L (9-52) 05/16/18 06:10 Lactate Dehydrogenase 550 IU/L (313-618) 05/16/18 06:10 Temp Pulse Resp BP Pulse Ox 36.2 C 84 15 98/60 L 94 05/18/18 08:00 05/18/18 08:00 05/18/18 08:00 05/18/18 08:00 05/18/18 08:00 Uterine Position/Fundal Height: Umbilicus -1 Uterine Tone: Firm Physical Exam - Physical Exam Abdomen: non-tender (approp post op tenderness), soft, dressing (CDI - will remove after shower) Extremities: non-tender, pedal edema (usual edema in left lower) Skin: normal color, warm/dry Neuro/Psych: alert, normal mood/affect
[2018-05-18] MEDS: FERRO-SEQUELS 65 MG TAB.ER PO SCH (15:13)
[2018-05-18] MEDS: ACETAMINOPHEN 500 MG TAB PO PRN ×2 (15:13→21:25)
[2018-05-19] MEDS: IBUPROFEN 600 MG TAB PO SCH ×4 (05:24→23:56)
[2018-05-19] MEDS: ACETAMINOPHEN 500 MG TAB PO PRN ×2 (05:24→17:17)
[2018-05-19] MEDS: FERRO-SEQUELS 65 MG TAB.ER PO SCH (10:03)
[2018-05-19] MEDS: SIMETHICONE 80 MG TAB CHEW PO PRN ×2 (10:03→13:13)
[2018-05-19] MEDS: DOCUSATE SODIUM 100 MG CAP PO PRN ×2 (10:03→23:55)
[2018-05-19] MEDS ORDERED: BISACODYL 10 MG SUPP PR PRN ×2 (13:47→14:05)
[2018-05-19] MEDS ORDERED: MAGNESIUM HYDROXIDE 30 ML UDCUP PO PRN ×2 (13:47→14:05)
[2018-05-19] MEDS ORDERED: LACTULOSE 20 GM/30 ML UDCUP PO PRN ×2 (13:47→14:05)
[2018-05-19] MEDS ORDERED: POLYETHYLENE GLYCOL 3350 17 GM PKT PO PRN ×2 (13:47→14:05)
[2018-05-19] MEDS ORDERED: SENNOSIDES/DOCUSATE SODIUM TAB PO SCH (21:00)
--- NOTE | 2018-05-19 21:12 | OBPP ---
Progress Note Assessment/Plan: Assessment: POD2 s/p Subjective/ Course: Doing great this AM - no acute concerns. Reports her LLE is indeed more swollen than her right, but that this is chronically the case. No pain or redness in the LE. BF going well. Objective: 05/18/18 05:55 05/16/18 06:10 Patient ABO/Rh O POSITIVE 05/16/18 06:10 Uric Acid 8.1 mg/dL (2.5-6.8) H 05/16/18 06:10 Total Bilirubin 0.5 mg/dL (0.1-1.4) 05/15/18 18:10 Conjugated Bilirubin 0.2 mg/dL (0.0-0.5) 05/15/18 18:10 Unconjugated Bilirubin 0.3 mg/dL (0.0-1.1) 05/15/18 18:10 AST 35 IU/L (14-46) 05/16/18 06:10 ALT 19 IU/L (9-52) 05/16/18 06:10 Lactate Dehydrogenase 550 IU/L (313-618) 05/16/18 06:10 Temp Pulse Resp BP Pulse Ox 36.6 C 96 16 107/62 97 05/19/18 15:34 05/19/18 15:34 05/19/18 15:34 05/19/18 15:34 05/19/18 15:34 Uterine Position/Fundal Height: At Umbilicus Uterine Tone: Firm Physical Exam - Physical Exam Abdomen: non-tender, soft, incision (CDI)
[2018-05-20] MEDS: SENNOSIDES/DOCUSATE SODIUM TAB PO SCH ×2 (00:45→14:11)
[2018-05-20] MEDS: IBUPROFEN 600 MG TAB PO SCH ×2 (05:26→11:36)
[2018-05-20] MEDS: ACETAMINOPHEN 500 MG TAB PO PRN (09:00)
[2018-05-20 09:23] VITALS: BP 120/78
--- NOTE | 2018-05-20 09:48 | OBPP ---
Progress Note Assessment/Plan: Assessment: 28 G1 at 39w0d undergoing IOL for preeclampsia without severe features - by BPs and p/c = 0.546. Labs stable this morning, though appears to be hemoconcentrating. BPs stable this morning. Cephalic presentation confirmed by Dr. Coyle this morning. Schafer bulb still in place. GBS neg. EFW 8lb Plan: Pitocin has been started. Continue close observation, will start monitoring I/O too. Aleyda Alvaerz MD, [facility] 05/16/18 08:22 A/p: 28 G1 at 39wk - IOL for preeclampsia without severe features, not in active labor yet. Will continue pitocin. Aleyda Alvarez MD 05/16/18 11:45 A/P: 28 G1 at 39wk - IOL for preeclampsia without severe features, not in active labor yet, though Schafer bulb just came out. Aleyda Alvarez MD 05/16/18 14:46 05/16/18 16:23 A/P: 28 G1 t 39 wk - IOL for preeclampsia, s/p SROM - clear, appears to be starting active labor. BPs stable. Will continue with pitocin. Aleyda Alvarez MD 05/16/18 21:31 A/P: 28 G1 at 39wk, IOL for preeclampsia, now s/p SROM 5 hours ago, epidural placement, and minimal progress since. IUPC placed. Will cut pitocin in half and then restart and titrate in response to IUPC. Aleyda Alvarez MD 05/17/18 01:10 A/P: 28 G1 at 39w1d, IOL for preeclampsia, now s/p SROM x 9 hours, epidural effective. Unable to get contraction pattern adequate. IUPC replaced. Will stop pitocin and restart again. Continue with position changes, and peanut ball. Aleyda Alvarez MD 05/17/18 04:12 A/P: 28 G1 at 39w1d, with a failed IOL for preeclampsia. Unable to obtain an adequate contraction pattern. Has been arrested at 5 cm for almost 7 hours. Long discussion - recommended proceeding with a section, as unable to obtain an adequate contraction pattern, despite adjusting the pitocin, and position changes. B/R/A of proceeding with pitocin vs a section discussed. Agreed to proceed with a C/S. Written informed consent obtained. Aleyda Alvarez, MD A/P: POD#3 s/p primary LTCS 2/2 arrest of descent, in setting of preeclampsia. Doing well. Asymptomatic from preeclampsia. Will dc home. Reviewed standard postop instructions, and ssx of pp depression. See dc summary. Aleyda Alvarez MD, FACOG, [facility] 05/20/18 11:00 Subjective/ Course: Doing great this AM - no acute concerns. Reports her LLE is indeed more swollen than her right, but that this is chronically the case. No pain or redness in the LE. BF going well. 05/20/18 11:02 Doing well. going well. Ambulating, voiding, chapo reg diet without difficulty. + flatus and +BM. Taking only ibuprofen and tylenol, no po narcotics yet. Using LLE antiedema device which she brought from home. Ready to go home. Objective: 05/18/18 05:55 05/16/18 06:10 Patient ABO/Rh O POSITIVE 05/16/18 06:10 Uric Acid 8.1 mg/dL (2.5-6.8) H 05/16/18 06:10 Total Bilirubin 0.5 mg/dL (0.1-1.4) 05/15/18 18:10 Conjugated Bilirubin 0.2 mg/dL (0.0-0.5) 05/15/18 18:10 Unconjugated Bilirubin 0.3 mg/dL (0.0-1.1) 05/15/18 18:10 AST 35 IU/L (14-46) 05/16/18 06:10 ALT 19 IU/L (9-52) 05/16/18 06:10 Lactate Dehydrogenase 550 IU/L (313-618) 05/16/18 06:10 Temp Pulse Resp BP Pulse Ox 36.8 C 92 18 120/78 97 05/20/18 08:30 05/20/18 08:30 05/20/18 08:30 05/20/18 08:30 05/20/18 08:30 VSS, afeb, BPs stable since delivery gen - pleasant, NAD CV - RRR chest - CTAB abd - soft, + BS, fundus firm at u-1, inc - c/d/i with steri strips intact ext - RLE with 1+ pitting edema, calf nontender. LLE with large inflatable device from toe to inguinal crease in place so leg not examined. Uterine Position/Fundal Height: Umbilicus -1 Uterine Tone: Firm
--- NOTE | 2018-05-20 11:14 | OBGCSDC ---
General Delivery Information - General Info : 1 Para: 1 Abortions: 0 Type: Primary L&D Analgesia/Anesthesia Type: Epidural Admission Date: 05/16/18 Labs: Patient ABO/Rh O POSITIVE 05/16/18 06:10 Hct 29.6 % (38.0-47.0) L 05/18/18 05:55 - Hospital Course Antepartum: Office visit on 05/15/18 - elevated BPs. To L&D for induction. Asymptomatic, but p/c = 0.546 and BPs 150/100 initially. 05/16/18 08:38 Intrapartum: 05/16/18 08:33 Pt comfortable. Feeling a little cramping since pitocin started this morning by Dr. Coyle. No LOF, some bloody dc. Alcazar bulb still in place. No RIZZO, no vis changes, no RUQ or epigastric pain. 05/16/18 11:46 Per RN - pt doing well, not uncomfortable, has been tugging alcazar with no removal. 05/16/18 14:49 Doing well, minimal cramping, but Alcazar bulb just out. 05/16/18 16:27 Pt doing well. Just had gush of fluid. Becoming more uncomfortable with contractions. 05/16/18 21:33 Pt comfortable after epidural, but thought maybe she was feeling some more pressure. 05/17/18 01:12 Pt still comfortable. Can occasionally feel a contraction. No RIZZO, no vis changes. Just had some N/V which was new. Frustrated with slow progress. 05/17/18 04:15 Pt still comfortable, not feeling much different. NO RIZZO, no vis changes. No more nausea. : Doing great this AM - no acute concerns. Reports her LLE is indeed more swollen than her right, but that this is chronically the case. No pain or redness in the LE. BF going well. 05/20/18 11:02 Doing well. going well. Ambulating, voiding, chapo reg diet without difficulty. + flatus and +BM. Taking only ibuprofen and tylenol, no po narcotics yet. Using LLE antiedema device which she brought from home. Ready to go home. Vaginal - Diagnosis Amniotic Fluid Color: Clear, Bloody (mildly blood tinged) - Procedures Non-surgical Procedures: IUPC (replaced) - Delivery Providers Surgeon: Aleyda Alvarez Production Mechanic Tin Cans: Daniella Sarah Anesthesiologist: Bill Hines - Delivery Number of Prior Sections: 0 Indications for Current Section: Arrest of Dilation (at 5cm, IOL for preeclampsia) Non-surgical Procedures: IUPC (replaced) Surgical Procedures: Unscheduled Intra-op Complications: Other (Specify) (mild uterine atony) EBL: 1500 Data JENN: 05/23/18 Gestational Age: 39 week(s) and 4 day(s) Jansen Delivery Date: 05/17/18 Delivery Time: 05:09 Sex of : Male (Gustavo) Weight (gm): 3758 kg Score (1 Min): 8 Score (5 Min): 8 Discharge Information - Discharge Information Prescriptions: oxyCODONE IR [Oxycodone Ir (*)] 5 mg PO Q4HRS PRN #25 tab PRN Reason: Pain, Severe Condition: Good Instruction/Follow Up: See Instruction Sheet (No lifting > 15 lb x 6 weeks. No driving for 2 weeks. Pelvic rest for 6 weeks. ), Two Weeks (incision check at [facility]), Four Weeks (Free therapist appointment with [facility] at [facility]), Six Weeks ( exam with physician at [facility])
[2018-05-20] MEDS: FERRO-SEQUELS 65 MG TAB.ER PO SCH (11:36)
[2018-05-20] MEDS: DOCUSATE SODIUM 100 MG CAP PO PRN (11:36)
== END 2018-05-20 12:30 | disposition home or self-care (01) | DRG 787 ==
LOC: FLD 17:33 → OBSVTOIN 05-16 11:32 → FOB 05-17 07:44
PROVIDERS: ADMIT Obstetrics & Gynecology; ATTEND Obstetrics & Gynecology
PROC: 3E033VJ Introduction of Other Hormone into Peripheral Vein, Percutaneous Approach (ICD-10-PCS; 2018-05-16)
PROC: 0U7C7ZZ Dilation of Cervix, Via Natural or Artificial Opening (ICD-10-PCS; 2018-05-16)
PROC: 10D00Z1 Extraction of Products of Conception, Low, Open Approach (ICD-10-PCS; principal; 2018-05-17)
DX: O62.1 Secondary uterine inertia (principal); O99.03 Anemia complicating the puerperium; D62 Acute posthemorrhagic anemia; O14.04 Mild to moderate pre-eclampsia, complicating childbirth; Z37.0 Single live birth; Z3A.38 38 weeks gestation of pregnancy
CPT/HCPCS: J0690; J1885; J2274; J2370; J2400; J2405; J2550; J2590; J3010

== ENCOUNTER 2018-11-23 11:33 | Emergency (ER) | payer OTHER | END 2018-11-23 12:10 | disposition home or self-care (01) | DX: Z77.21 Contact with and (suspected) exposure to potentially hazardous body fluids (principal); S61.231A Puncture wound without foreign body of left index finger without damage to nail, initial encounter; W46.1XXA Contact with contaminated hypodermic needle, initial encounter; Y93.F9 Activity, other caregiving; Y99.0 Civilian activity done for income or pay ==